=== PATIENT | female | born 1960 ===

== ENCOUNTER 2018-12-17 14:03 | Emergency (ER) | payer OTHER ==
[~2018-12-17] VITALS: Ht 157.5 cm; Wt 88.5 kg
[2018-12-17] MEDS ORDERED: NEURONTIN300 MG (14:20)
[2018-12-17] MEDS ORDERED: AVALIDE 300-121 EACH (14:20)
[2018-12-17] MEDS ORDERED: ASPIR-TRIN325 MG (14:20)
== END 2018-12-17 20:54 | disposition home or self-care (01) ==
LOC: ER 14:03
DX: R42 Dizziness and giddiness (principal); R07.89 Other chest pain

== ENCOUNTER 2021-11-29 15:45 | Outpatient (CLI) | payer OTHER ==
[~2021-11-29 15:45] MED LIST: ASPIR-TRIN325 MG; AVALIDE 300-121 EACH; NEURONTIN300 MG
== END 2021-11-29 15:55 | disposition home or self-care (01) ==
LOC: PPH VACUNA 15:45
PROVIDERS: ATTEND Emergency Medicine Pediatric Emergency Medicine
DX: Z23 Encounter for immunization (principal)